=== PATIENT | female | born 1975 | race Caucasian/White ===

== ENCOUNTER 2016-09-25 01:13 | Emergency (ER) | payer MEDICAID ==
--- NOTE | 2016-09-25 01:56 | ED Physician Documentation ---
History of Present Illness - Stated complaint Stated Complaint: R KNEE/SHOULDER PX - Chief complaint Chief Complaint: General - History obtained from History obtained from: Patient - History of Present Illness Timing: Enter time (18:00) Pain level now: 6 Improved by: rest Worsened by: movement - Additonal information Additional information: c/o right knee and left shoulder pain since 6 PM. Patient says she has had this same pattern of joint pain in the past, diagnosed with gout and usually responds to gout medications. She is out of her colchicine, and some of her other medications are . Review of Systems Constitutional: denies: Fever, Chills, Sweats Skin: denies: Rash Musculoskeletal: reports: Joint pain Neurologic: denies: Focal weakness, Numbness PD PAST MEDICAL HISTORY - Past Medical History Endocrine/Autoimmune: HyPOthyroidism Psych: Depression, ADD/ADHD - Past Surgical History Past Surgical History: Yes Ortho: ACL reconstruction, Arthroscopic surgery /[employer]: section - Present Medications Home Medications: Ambulatory Orders Medication Instructions Recorded Confirmed Cholecalciferol (Vitamin D3) 2,500 unit DAILY 10/01/14 09/25/16 [Vitamin D-3] Fluoxetine HCl [Prozac] 40 mg ORAL DAILY 10/01/14 09/25/16 Levothyroxine Sodium [Levoxyl] 125 mcg ORAL DAILY PM 10/01/14 09/25/16 Levothyroxine [Synthroid] 25 mcg DAILY 10/01/14 09/25/16 Loratadine [Claritin] 10 mg DAILY 10/01/14 09/25/16 [place]-3/Dha/Epa/Fish Oil [Fish Oil] 1 cap DAILY 10/01/14 09/25/16 Ondansetron Odt [Zofran] 4 mg TL Q6H PRN #10 tablet 10/01/14 09/25/16 Oxycodone HCl/Acetaminophen 1 - 2 each PO Q6H PRN #15 tablet 10/01/14 09/25/16 [Percocet 5-325 mg Tablet] Colchicine 0.3 mg PO BID #6 tablet 09/25/16 Indomethacin 50 mg PO TID PRN #30 capsule 09/25/16 Ondansetron Odt [Zofran] 4 mg TL Q6H PRN #10 tablet 09/25/16 - Allergies Allergies/Adverse Reactions: Allergies Allergy/AdvReac Type Severity Reaction Status Date / Time codeine AdvReac Emesis Verified 10/01/14 19:13 - Social History Does the pt smoke?: Yes Smoking Status: Current every day smoker Does the pt drink ETOH?: Yes Does the pt have substance abuse?: No PD ED PE NORMAL - Vitals Vital signs reviewed: Yes - General General: Alert and oriented X 3, Well developed/nourished, Other (appears uncomfortable) - Extremities Extremities: Other (mild edema right knee and left shoulder with mild increased warmth compared to surrounding skin and other knee and shoulder. Mild tenderness to palpation. ) Results - Vitals Vitals: Vital Signs - 24 hr 09/25/16 09/25/16 01:16 03:52 Temperature 36.7 C 36.5 C Heart Rate 114 H 97 Respiratory 18 16 Rate Blood Pressure 133/98 H 108/58 L O2 Saturation 99 98 Oxygen O2 Source Room air PD MEDICAL DECISION MAKING - ED course Complexity details: considered differential, d/w patient ED course: Patient is confident that her joint pain is c/w her previous episodes of gout. Polyarthritis would be atypical of acute gouty arthritis, but she does not have evidence of septic joint and it is reasonable to treat her symptoms with the medications that have worked before on these same joint pains. Departure - Departure Disposition: 01 Home, Self Care Clinical Impression: Polyarthritis Condition: Good Instructions: ED Arthritis Gout Follow-Up: [facility] [Provider Group] [facility] [Provider Group] Prescriptions: Colchicine 0.3 mg PO BID #6 tablet Indomethacin 50 mg PO TID PRN #30 capsule PRN Reason: Pain Ondansetron Odt [Zofran] 4 mg TL Q6H PRN #10 tablet PRN Reason: Nausea / Vomiting Discharge Date/Time: 09/25/16 03:58
[2016-09-25] MEDS ORDERED: KETOROLAC 60 MG/2 ML VIAL IM STA (02:35)
[2016-09-25] MEDS ORDERED: HYDROmorphone 1 MG/ML SYRINGE IM STA ×2 (02:35→03:27)
[2016-09-25] MEDS ORDERED: ONDANSETRON ODT 4 MG TABLET TL STA (02:35)
[2016-09-25] MEDS ORDERED: KETOROLAC 60 MG/2 ML VIAL ONE (02:43)
[2016-09-25] MEDS ORDERED: HYDROmorphone 1 MG/ML SYRINGE ONE ×2 (02:43→03:32)
[2016-09-25] MEDS ORDERED: ONDANSETRON ODT 4 MG TABLET ONE (02:43)
[2016-09-25] MEDS ORDERED: COLCHICINE 0.6 MG TABLET PO ONE (02:51)
[2016-09-25 03:52] VITALS: BP 108/58
[2016-09-25] MEDS ORDERED: COLCHICINE 0.6 MG TABLET PO SCH (09:00)
== END 2016-09-25 03:58 | disposition home or self-care (01) ==
LOC: ED 01:13
DX: M13.0 Polyarthritis, unspecified (principal); M10.9 Gout, unspecified; E03.9 Hypothyroidism, unspecified; F32.9 Major depressive disorder, single episode, unspecified
CPT/HCPCS: 96372; 99283; A9270; J1170; Q0162

== ENCOUNTER 2016-09-26 03:55 | Emergency (ER) | payer MEDICAID ==
--- NOTE | 2016-09-26 04:25 | ED Physician Documentation ---
History of Present Illness - Stated complaint Stated Complaint: R KNEE/R SHOULDER PX - Chief complaint Chief Complaint: General - History obtained from History obtained from: Patient - History of Present Illness Timing: How many days ago (2-3) Pain level max: 10 Pain level now: 10 Improved by: no ameliorating factors Worsened by: palpation, movement - Additonal information Additional information: T+R yesterday from this ED for same symptoms (left shoulder, right knee pain) which she is confident is c/w previous acute gouty arthritic flares. She had relief of symptoms with dilaudid, colchicine, toradol yesterday. Unfortunately, she did not fill the prescriptions I wrote for her yesterday. She felt well during the day but starting this evening, the pain recurred and has become unbearable. Review of Systems Constitutional: denies: Fever, Chills, Sweats Cardiac: reports: Reviewed and negative Respiratory: reports: Reviewed and negative GI: reports: Reviewed and negative Skin: denies: Rash Musculoskeletal: reports: Joint pain. denies: Neck pain, Joint swelling, Pain with weight bearing Neurologic: denies: Focal weakness, Numbness PD PAST MEDICAL HISTORY - Past Medical History Endocrine/Autoimmune: HyPOthyroidism Psych: Depression, ADD/ADHD Other Past Medical History: Gout - Past Surgical History Past Surgical History: Yes Ortho: ACL reconstruction, Arthroscopic surgery /[employer] F[employer]ER: section - Present Medications Home Medications: Ambulatory Orders Medication Instructions Recorded Confirmed Cholecalciferol (Vitamin D3) 2,500 unit DAILY 10/01/14 09/25/16 [Vitamin D-3] Fluoxetine HCl [Prozac] 40 mg ORAL DAILY 10/01/14 09/25/16 Levothyroxine Sodium [Levoxyl] 125 mcg ORAL DAILY PM 10/01/14 09/25/16 Levothyroxine [Synthroid] 25 mcg DAILY 10/01/14 09/25/16 Loratadine [Claritin] 10 mg DAILY 10/01/14 09/25/16 [place]-3/Dha/Epa/Fish Oil [Fish Oil] 1 cap DAILY 10/01/14 09/25/16 Ondansetron Odt [Zofran] 4 mg TL Q6H PRN #10 tablet 10/01/14 09/25/16 Oxycodone HCl/Acetaminophen 1 - 2 each PO Q6H PRN #15 tablet 10/01/14 09/25/16 [Percocet 5-325 mg Tablet] Colchicine 0.3 mg PO BID #6 tablet 09/25/16 Indomethacin 50 mg PO TID PRN #30 capsule 09/25/16 Ondansetron Odt [Zofran] 4 mg TL Q6H PRN #10 tablet 09/25/16 - Allergies Allergies/Adverse Reactions: Allergies Allergy/AdvReac Type Severity Reaction Status Date / Time codeine AdvReac Emesis Verified 09/26/16 04:01 - Social History Does the pt smoke?: Yes Smoking Status: Current every day smoker Does the pt drink ETOH?: Yes Does the pt have substance abuse?: No - Immunizations Immunizations are current?: Yes PD ED PE NORMAL - Vitals Vital signs reviewed: Yes - General General: Alert and oriented X 3, Well developed/nourished, Other (crying, painful distress) - Neck Neck: No bony TTP - Cardiac Cardiac: RRR, No murmur - Respiratory Respiratory: No respiratory distress, Clear bilaterally - Derm Derm: Normal color, Warm and dry, No rash - Extremities Extremities: No tenderness to palpate, Normal ROM s pain, No edema Results - Vitals Vitals: Vital Signs - 24 hr 09/26/16 09/26/16 03:59 05:41 Temperature 36.9 C Heart Rate 103 H 108 H Respiratory 20 20 Rate Blood Pressure 166/104 H 141/77 H O2 Saturation 100 98 Oxygen O2 Source Room air PD MEDICAL DECISION MAKING - ED course Complexity details: reviewed old records, considered differential, d/w patient Departure - Departure Disposition: 01 Home, Self Care Clinical Impression: Gout Condition: Good Instructions: ED Arthritis Gout, ED Diet Gout Discharge Date/Time: 09/26/16 06:21
[2016-09-26] MEDS ORDERED: HYDROmorphone 1 MG/ML SYRINGE IM STA (04:34)
[2016-09-26] MEDS ORDERED: HYDROmorphone 1 MG/ML SYRINGE ONE (04:43)
[2016-09-26] MEDS ORDERED: COLCHICINE 0.6 MG TABLET PO ONE (04:49)
[2016-09-26] MEDS ORDERED: ONDANSETRON ODT 4 MG TABLET TL STA (05:17)
[2016-09-26] MEDS ORDERED: KETOROLAC 60 MG/2 ML VIAL IM STA (05:19)
[2016-09-26] MEDS ORDERED: ONDANSETRON ODT 4 MG TABLET ONE (05:20)
[2016-09-26] MEDS ORDERED: KETOROLAC 60 MG/2 ML VIAL ONE (05:20)
[2016-09-26 05:47] VITALS: BP 141/77
[2016-09-26] MEDS ORDERED: COLCHICINE 0.6 MG TABLET PO SCH (09:00)
== END 2016-09-26 06:21 | disposition home or self-care (01) ==
LOC: ED 03:55
DX: M10.9 Gout, unspecified (principal); F17.200 Nicotine dependence, unspecified, uncomplicated
CPT/HCPCS: 96372; 99283; A9270; J1170; Q0162